=== PATIENT | male | born 1960 | race Two or more races ===

== ENCOUNTER 2018-03-27 11:17 | Inpatient (IN) | payer OTHER ==
[~2018-03-27] VITALS: Ht 160 cm; Wt 83.0 kg
[2018-04-02] MEDS ORDERED: ULTRACET PO (13:33)
[2018-04-02] MEDS ORDERED: AMOX1TAB5 PO (13:33)
[2018-04-02] MEDS ORDERED: ZANTAC300 MG PO (13:33)
== END 2018-04-02 14:10 | disposition home or self-care (01) | DRG 419 ==
LOC: ER 11:17 → SEC-K 03-28 11:23 → MEDI 03-28 11:23 → MEDJ 03-28 13:44 → MEDI 03-28 13:44
PROC: 0FT44ZZ Resection of Gallbladder, Percutaneous Endoscopic Approach (ICD-10-PCS; principal; 2018-03-28)
PROC: 0DNW4ZZ Release Peritoneum, Percutaneous Endoscopic Approach (ICD-10-PCS; 2018-03-28)
PROC: BF13YZZ Fluoroscopy of Gallbladder and Bile Ducts using Other Contrast (ICD-10-PCS; 2018-03-28)
PROC: 0F9440Z Drainage of Gallbladder with Drainage Device, Percutaneous Endoscopic Approach (ICD-10-PCS; 2018-03-28)
DX: K80.00 Calculus of gallbladder with acute cholecystitis without obstruction (principal); K66.0 Peritoneal adhesions (postprocedural) (postinfection); K29.70 Gastritis, unspecified, without bleeding